=== PATIENT | female | born 1990 | race Caucasian/White ===

== ENCOUNTER 2019-04-30 14:10 | Emergency (ER) | payer OTHER ==
--- NOTE | 2019-04-30 14:31 | PDOC ---
Rapid Medical Evaluation Time Seen by Provider: 04/30/19 14:14 Medical Evaluation: Allergies Allergy/AdvReac Type Severity Reaction Status Date / Time No Known Allergies Allergy Verified 04/30/19 14:26 04/30/19 14:28 CC: vaginal discharge, rectal itching and rash Pt is a 28 y/o female with vaginal discharge and rash to her rectal area. Questionable dysuria. Brief exam: comfortable in triage, no abd tender to palp Orders: UA Pt to proceed to ED for further eval. Discharge Disposition - Diagnosis Vaginal discharge - Referrals - Patient Instructions - Post Discharge Activity
--- NOTE | 2019-04-30 14:56 | PDOC ---
History of Present Illness - General Chief Complaint: Vaginal Sxs Stated Complaint: VAGINAL INFECTION Time Seen by Provider: 04/30/19 14:14 History Source: Patient Exam Limitations: No Limitations Past History - Past Medical History Allergies/Adverse Reactions: Allergies Allergy/AdvReac Type Severity Reaction Status Date / Time No Known Allergies Allergy Verified 04/30/19 14:26 Home Medications: Ambulatory Orders Adalimumab [Humira] mg SQ ASDIR 04/30/19 - Reproductive History Spontaneous : 1 - Immunization History Immunization Up to Date: Yes - Psycho Social/Smoking Cessation Hx Smoking Status: No Smoking History: Never smoked Number of Cigarettes Smoked Daily: 0 *Physical Exam - Vital Signs Last Vital Signs Temp Pulse Resp BP Pulse Ox 98.7 F 80 18 128/86 97 04/30/19 14:29 04/30/19 14:29 04/30/19 14:29 04/30/19 14:29 04/30/19 14:29 - Physical Exam General Appearance: No: Apparent Distress Respiratory/Chest: positive: Lungs Clear, Normal Breath Sounds. negative: Respiratory Distress Cardiovascular: positive: Regular Rhythm, Regular Rate, S1, S2. negative: Murmur Female Pelvic Exam: positive: discharge (thin brownish discharge, no foul odor) . negative: CMT, adnexal tenderness Gastrointestinal/Abdominal: positive: Normal Bowel Sounds, Soft. negative: Tender, Distended, Guarding, Rebound Neurologic: positive: Alert Medical Decision Making - Medical Decision Making 28 y/o F hx of hidradenitis suppurativa, left ovarian cyst presents with vaginal itching, vaginal irritation, dysuria and brownish d/c x 3-4 days. Denies fever, sob, cp, abd pain, n/v, hematuria, increased urinary frequency. LNMP 2-3 weeks ago. Is sexually active with multiple partners. Hx of gonorrhea treated 2 years ago. R/O UTI; consider STI Plan: UA, UCG, UCx, chlam/fred/trich testing 04/30/19 14:50 UA neg UCG neg Patient empirically treated for chlymadia and gonorrhea 04/30/19 15:47 Discharge - Discharge Information Problems reviewed: Yes Clinical Impression/Diagnosis: Vaginal discharge Condition: Stable Disposition: HOME - Admission No - Additional Discharge Information Prescription Drug Monitoring Program (I-STOP) results: I-STOP not reviewed - Follow up/Referral - Patient Discharge Instructions Patient Printed Discharge Instructions: [facility] for Vaginal Discharge Additional Instructions: Thank you for choosing [facility]. It was a pleasure taking care of you. Please refrain from sexual intercourse for 1 week You will be called back regarding lab results Return to the Emergency Department if your symptoms worsen or persist or have other concerning symptoms. - Post Discharge Activity
[2019-04-30 15:04] VITALS: BP 128/86; PULSE 80; TEMP 98.7; BMI 33.6
[2019-04-30 15:05] LABS: EPI CELLS 3.6 /HPF (0-5/HPF); HYALINE CASTS 2 /lpf (0-8); PH,URINE 6.5 (5.0-8.0); URINE APPEARANCE CLEAR; URINE BACTERIA 79.1 /hpf (NEGATIVE); URINE BILIRUBIN NEGATIVE (NEGATIVE); URINE COLOR YELLOW; URINE GLUCOSE (UA) NEGATIVE (NEGATIVE); URINE KETONE NEGATIVE (NEGATIVE); URINE LEUK ESTERASE NEGATIVE (NEGATIVE); URINE NITRITE NEGATIVE (NEGATIVE); URINE PROTEIN NEGATIVE (NEGATIVE); URINE RBC 2 /hpf (0-4); URINE UROBILINOGEN 0.2 mg/dL (0.2-1.0); URINE WBC 2 /hpf (0-5)
[2019-04-30] MEDS ORDERED: AZITHROMYCIN 500 MG TABLET PO ONE (15:13)
[2019-04-30] MEDS ORDERED: AZITHROMYCIN 250 MG TABLET ONE (15:31)
[2019-04-30] MEDS ORDERED: LIDOCAINE HCL 1%, 10 MG/ML (20ML VIAL) ONE (15:32)
== END 2019-04-30 15:55 | disposition home or self-care (01) ==
LOC: JERFT 14:10
DX: N89.8 Other specified noninflammatory disorders of vagina (principal); Z86.19 Personal history of other infectious and parasitic diseases
CPT/HCPCS: 36415; 81003; 84703; 87086; 87491; 87591; 87661; 99282-25

== ENCOUNTER 2020-05-11 09:22 | Emergency (ER) | payer OTHER ==
[2020-05-11 09:37] VITALS: BP 105/66; PULSE 75; TEMP 98.5; BMI 34.5
[2020-05-11] MEDS ORDERED: IBUPROFEN 400 MG TABLET (FP) PO ONE ×2 (10:16)
== END 2020-05-11 12:00 | disposition home or self-care (01) ==
LOC: JERFT 09:22
PROC: 0Y953ZZ Drainage of Right Inguinal Region, Percutaneous Approach (ICD-10-PCS; principal; 2020-05-11)
DX: N76.4 Abscess of vulva (principal)
CPT/HCPCS: 99284-25

== ENCOUNTER 2021-02-06 10:26 | Emergency (ER) | payer OTHER ==
[2021-02-06 10:35] VITALS: BP 130/83; PULSE 90; TEMP 98.6; BMI 33.6
[2021-02-06] MEDS ORDERED: KETOROLAC TROMETHAMINE 60 MG/2 ML VIAL IM ONE (11:27)
[2021-02-06] MEDS ORDERED: KETOROLAC TROMETHAMINE 60 MG/2 ML VIAL ONE (11:34)
== END 2021-02-06 12:04 | disposition home or self-care (01) ==
LOC: JER 10:26 → JERFT 10:26
PROC: 0Y960ZZ Drainage of Left Inguinal Region, Open Approach (ICD-10-PCS; principal; 2021-02-06)
PROC: 3E0233Z Introduction of Anti-inflammatory into Muscle, Percutaneous Approach (ICD-10-PCS; 2021-02-06)
DX: L02.214 Cutaneous abscess of groin (principal)
CPT/HCPCS: 87070; 87076; 87205; 99284-25

== ENCOUNTER 2022-04-12 10:57 | Emergency (ER) | payer OTHER ==
[2022-04-12 11:09] VITALS: BP 115/75; PULSE 74; RESP 18; TEMP 99; BMI 22.1
[2022-04-12 13:39] LABS: PH,URINE 7.5 (5.0-8.0); URINE APPEARANCE CLEAR; URINE BILIRUBIN NEGATIVE (NEGATIVE); URINE COLOR YELLOW; URINE GLUCOSE (UA) NEGATIVE (NEGATIVE); URINE KETONE NEGATIVE (NEGATIVE); URINE LEUK ESTERASE NEGATIVE (NEGATIVE); URINE NITRITE NEGATIVE (NEGATIVE); URINE PROTEIN NEGATIVE (NEGATIVE); URINE UROBILINOGEN 0.2 mg/dL (0.2-1.0)
[2022-04-12 13:41] LABS: HCG,QUALITATIVE URINE Negative
== END 2022-04-12 14:19 | disposition home or self-care (01) ==
LOC: JERFT 10:57
DX: N76.0 Acute vaginitis (principal)
CPT/HCPCS: 36415; 81003; 84703; 87081; 87491; 87591; 87661; 99283-25

== ENCOUNTER 2023-11-30 09:24 | Emergency (ER) | payer OTHER ==
[2023-11-30 09:29] VITALS: BP 130/90; PULSE 89; RESP 20; TEMP 98.6; BMI 34.3
[2023-11-30] MEDS ORDERED: KETOROLAC TROMETHAMINE 30 MG/1 ML VIAL ONE (09:53)
[2023-11-30] MEDS ORDERED: ACETAMINOPHEN 500 MG TABLET (FP) ONE (09:53)
[2023-11-30] MEDS ORDERED: LIDOCAINE 4% PATCH TP ONE (09:53)
[2023-11-30] MEDS: KETOROLAC TROMETHAMINE 30 MG/1 ML VIAL IM ONE (09:59)
[2023-11-30] MEDS: LIDOCAINE 4% PATCH TP ONE (09:59)
[2023-11-30] MEDS: ACETAMINOPHEN 500 MG TABLET (FP) PO ONE (10:00)
[2023-11-30 11:16] LABS: HIV INTERPRETATION NEGATIVE (NEGATIVE)
[2023-11-30] MEDS ORDERED: LIDOCAINE PATCH REMOVAL MC ONE (22:00)
== END 2023-11-30 10:40 | disposition home or self-care (01) ==
LOC: JERFT 09:24
PROC: 3E0133Z Introduction of Anti-inflammatory into Subcutaneous Tissue, Percutaneous Approach (ICD-10-PCS; principal; 2023-11-30)
DX: M62.838 Other muscle spasm (principal); M54.2 Cervicalgia
CPT/HCPCS: 36415; 86803; 87389; 99284-25

== ENCOUNTER 2024-01-11 17:51 | Emergency (ER) | payer OTHER ==
[2024-01-11 18:00] VITALS: BP 105/72; PULSE 87; RESP 20; TEMP 99; BMI 30.9
[2024-01-11] MEDS ORDERED: ACETAMINOPHEN INJECTION 100 ML ONE (19:20)
[2024-01-11 19:23] LABS: URINE APPEARANCE CLEAR; URINE BILIRUBIN NEGATIVE (NEGATIVE); URINE COLOR YELLOW; URINE GLUCOSE (UA) NEGATIVE (NEGATIVE); URINE KETONE NEGATIVE (NEGATIVE); URINE LEUK ESTERASE NEGATIVE (NEGATIVE); URINE NITRITE NEGATIVE (NEGATIVE); URINE PROTEIN NEGATIVE (NEGATIVE); URINE UROBILINOGEN 0.2 mg/dL (0.2-1.0)
[2024-01-11] MEDS: SODIUM CHLORIDE 0.9% 500 ML INFUS.BAG IV ONE (19:30)
[2024-01-11] MEDS: ACETAMINOPHEN 1000 MG/100 ML BAG IVPB ONE (19:30)
[2024-01-11 19:39] LABS: BASO % 0.4 % (0-2.0); EOS % 1.8 % (0-4.5); HEMATOCRIT 36.1 % (32.4-45.2); HEMOGLOBIN 11.6 GM/dL (10.7-15.3); MEAN CELL VOLUME 87.4 fl (80-96); MEAN PLT VOLUME 10.9 fl (7.5-11.1); MONO % 8.1 % (3.8-10.2); NEUT % 67.7 % (42.8-82.8); PLATELET COUNT 235 10^3/uL (134-434); RBC 4.13 M/mm3 (3.60-5.2); RDW 16.1 % (11.6-15.6); WHITE BLOOD COUNT 8.1 K/mm3 (4.0-10.0)
[2024-01-11 20:04] LABS: POTASSIUM 4.2 mmol/L (3.5-5.1)
[2024-01-11 20:08] LABS: BLOOD UREA NITROGEN 12.1 mg/dL (7-18)
[2024-01-11 20:11] LABS: CREATININE 0.7 mg/dL (0.55-1.3)
[2024-01-11 20:12] LABS: BILIRUBIN,TOTAL 0.3 mg/dL (0.2-1); TOT PROT 7.7 g/dl (6.4-8.2)
== END 2024-01-11 21:16 | disposition home or self-care (01) ==
LOC: JER 17:51
PROC: 3E033NZ Introduction of Analgesics, Hypnotics, Sedatives into Peripheral Vein, Percutaneous Approach (ICD-10-PCS; principal; 2024-01-11)
DX: K52.9 Noninfective gastroenteritis and colitis, unspecified (principal); N83.202 Unspecified ovarian cyst, left side; R10.2 Pelvic and perineal pain; R10.10 Upper abdominal pain, unspecified; R10.30 Lower abdominal pain, unspecified
CPT/HCPCS: 36415; 76830-TC; 80053; 81003; 84703; 85025; 85651; 86140; 87086; 87491; 87591; 87661; 99284-25; J0131